=== PATIENT | male | born 1980 | race African-American/Black ===

== ENCOUNTER 2019-08-24 09:16 | Emergency (ER) | payer OTHER ==
[2019-08-24 09:31] VITALS: BP 121/75
[2019-08-24 09:46] LABS: Influenza A Molecular POSITIVE (Negative)
--- NOTE | 2019-08-24 10:03 | UC ---
FLU HPI - HPI Summary HPI Summary: -year-old male with flulike symptoms over the past 2 days. He states his family had the flu last week. - History of Current Complaint Chief Complaint: UCGeneralIllness Stated Complaint: FLU SYMPTOMS Time Seen by Provider: 08/24/19 09:58 Hx Obtained From: Patient Onset/Duration: Sudden Onset Severity Currently: Moderate Severity Initially: Moderate Pain Intensity: 7 Associated Signs & Symptoms: Positive: Fever, Myalgia, Cough, Nasal Congestion, Headache Related Hx: Possible Flu/Infectious Exposure - Allergy/Home Medications Allergies/Adverse Reactions: Allergies Allergy/AdvReac Type Severity Reaction Status Date / Time No Known Allergies Allergy Verified 08/24/19 09:31 Home Medications: Home Medications NK [No Home Medications Reported] 08/24/19 [History Confirmed 08/24/19] PMH/Surg Hx/FS Hx/Imm Hx Previously Healthy: Yes - Surgical History Surgical History: None - Family History Known Family History: Positive: Non-Contributory - Social History Occupation: Employed Full-time Lives: With Family Alcohol Use: None Substance Use Type: None Smoking Status (MU): Never Smoked Tobacco Review of Systems All Other Systems Reviewed And Are Negative: Yes Constitutional: Positive: Fever, Chills ENT: Positive: Sore Throat, Nasal Discharge Respiratory: Positive: Cough Musculoskeletal: Positive: Myalgia Neurological/Mental Status: Positive: Headache Physical Exam Triage Information Reviewed: Yes Appearance: Well-Appearing, No Pain Distress, Well-Nourished Vital Signs: Initial Vital Signs Temp 100.7 F 08/24/19 09:29 Pulse 110 08/24/19 09:29 Resp 18 08/24/19 09:29 BP 121/75 08/24/19 09:29 Pulse Ox 100 08/24/19 09:29 Vital Signs Reviewed: Yes Eyes: Positive: Conjunctiva Clear ENT: Positive: Pharyngeal erythema - Mild pharyngeal erythema, Nasal drainage, TMs normal, Uvula midline Neck: Positive: Supple, Nontender, No Lymphadenopathy Respiratory: Positive: Lungs clear, Normal breath sounds, No respiratory distress, No accessory muscle use Cardiovascular: Positive: No Murmur, Pulses Normal, Brisk Capillary Refill, Tachycardia Musculoskeletal Exam: Normal Neurological Exam: Normal Psychological Exam: Normal Skin Exam: Normal Flu Course/Dx - Course Course Of Treatment: Rapid flu test: Positive He opted not to take Tamiflu. He is to rest at home and no work until Thursday. - Differential Dx/Diagnosis Provider Diagnosis: Influenza A Discharge ED - Sign-Out/Discharge Documenting (check all that apply): Patient Departure All imaging exams completed and their final reports reviewed: No Studies - Discharge Plan Condition: Fair Disposition: HOME Patient Education Materials: Influenza (DC) Forms: *Work Release Referrals: [facility] [Outside] No Primary Care Phys,NOPCP [Primary Care Provider] - Additional Instructions: Increase fluids, rest, Follow up at [facility] in 3-4 days if no improvement - Billing Disposition and Condition Condition: FAIR Disposition: Home
== END 2019-08-24 10:24 | disposition home or self-care (01) ==
LOC: UCEAST 09:16
DX: J10.1 Influenza due to other identified influenza virus with other respiratory manifestations (principal)
CPT/HCPCS: 99201; G0463